=== PATIENT | female | born 1990 | race Caucasian/White ===

== ENCOUNTER 2023-07-25 00:11 | Emergency (ER) | payer OTHER ==
[~2023-07-25] VITALS: Ht 154.9 cm; Wt 69.0 kg
[2023-07-25 00:35] VITALS: BP 131/83; PULSE 89; RESP 18; TEMP 97.8; O2SAT 100
[2023-07-25 01:00] LABS: HCG SCREEN NEGATIVE
[2023-07-25 03:28] LABS: CLARITY URINE CLEAR (CLEAR); COLOR URINE YELLOW (YELLOW); GLUCOSE URINE NEGATIVE (NEGATIVE); KETONES URINE TRACE (NEGATIVE); LEUKOCYTE ESTERASE URINE 2+ (NEGATIVE); NITRITE URINE NEGATIVE (NEGATIVE); OCCULT BLOOD URINE TRACE (NEGATIVE); PH URINE 6.5 (4.5-8.0); PROTEIN URINE NEGATIVE (NEGATIVE); UROBILINOGEN URINE 0.2 E.U./dL (0.2-1.0)
[2023-07-25 03:36] LABS: *AMPHETAMINES SCREEN URINE NEGATIVE (NEGATIVE)
[2023-07-25 03:37] LABS: *BARBITURATES SCREEN URINE NEGATIVE (NEGATIVE); *BENZODIAZEPINES SCREEN URINE NEGATIVE (NEGATIVE); *COCAINE SCREEN URINE NEGATIVE (NEGATIVE); CANNABINOID URINE SCREEN NEGATIVE (NEGATIVE); ECSTASY MDMA SCREEN URINE NEGATIVE (NEGATIVE); METHADONE URINE SCREEN NEGATIVE (NEGATIVE); OPIATES URINE SCREEN NEGATIVE (NEGATIVE); PHENCYCLIDINE URINE SCREEN NEGATIVE (NEGATIVE)
[2023-07-25 04:18] LABS: SQUAMOUS EPITHELIAL CELL URINE 2+ /lpf (RARE/1+); WBC URINE 25-50 /hpf (0-2)
[2023-07-25 04:19] LABS: BACTERIA URINE TRACE
== END 2023-07-25 04:30 | disposition home or self-care (01) ==
LOC: ER 00:11
DX: R51.9 Headache, unspecified (principal); F41.0 Panic disorder [episodic paroxysmal anxiety]; F43.0 Acute stress reaction
CPT/HCPCS: 71045; 80305; 81003; 82962; 84703; 93005; 99285